=== PATIENT | male | born 1995 | race Caucasian/White ===

== ENCOUNTER 2023-07-04 17:58 | Emergency (ER) | payer OTHER ==
[~2023-07-04] VITALS: Ht 188 cm; Wt 97.8 kg
[2023-07-04 19:48] LABS: BASO # 0.1 10^3/uL (0.0-0.2); BASO % 0.3 % (0.0-1.0); EOS # 0.1 10^3/uL (0.0-0.5); EOS % 0.7 % (0.0-3.0); HEMOGLOBIN 16.6 g/dl (13.5-17.5); LYMPH # 1.4 10^3/uL (1.5-5.0); LYMPH % 9.6 % (24.0-44.0); MEAN CORPUSCULAR HEMOGLOBIN 30.4 pg (27.0-33.0); MEAN CORPUSCULAR HGB CONC 34.6 g/dl (32.0-36.5); MEAN CORPUSCULAR VOLUME 87.9 fl (80.0-96.0); MONO % 6.5 % (2.0-8.0); NEUTROPHILS % 82.6 % (36.0-66.0); PLATELET COUNT, AUTOMATED 245 10^3/uL (150-450); RED BLOOD COUNT 5.46 10^6/uL (4.30-6.10); WHITE BLOOD COUNT 14.5 10^3/uL (4.0-10.0)
[2023-07-04 20:07] LABS: LIPASE 28 U/L (12-53)
[2023-07-04 20:09] LABS: ALKALINE PHOSPHATASE 77 U/L (46-116); ALT/SGPT 42 U/L (7.0-40); AST/SGOT 28 U/L (<34); BILIRUBIN,DIRECT 0.2 MG/DL (<0.4); BILIRUBIN,TOTAL 0.8 MG/DL (0.3-1.2); TOTAL PROTEIN 7.5 G/DL (5.7-8.2)
[2023-07-04 20:17] LABS: CPK CREATINE PHOSPHOKINASE 589 U/L (46-171); MB/CK RELATIVE INDEX 0.16 (< OR =4)
[2023-07-04] MEDS ORDERED: NS 1,000 ML IV ONE (20:30)
[2023-07-04 21:19] LABS: INR 0.99; PROTHROMBIN TIME 12.8 SECONDS (12.5-14.5)
[2023-07-04 21:22] LABS: D-DIMER QUANT 0.48 ug/mL (<0.5)
[2023-07-04 23:05] VITALS: BP 124/72; TEMP 97.5; O2SAT 96
== END 2023-07-04 23:52 | disposition home or self-care (01) ==
LOC: M ED 17:58
DX: R74.8 Abnormal levels of other serum enzymes (principal)